=== PATIENT | female | born 1975 | race Caucasian/White ===

== ENCOUNTER → 2016-12-21 | Outpatient (CLI) | payer OTHER ==
[~2016-12-21] MED LIST: LEVO100T PO; MELO7.5T5 PO; MULT-506 PO
[2016-12-21 10:05] LABS: THYROID STIMULATING HORMONE 1.32 uIu/ml (0.300-4.500)
== END | disposition home or self-care (01) ==
LOC: C.LAB1850 07:24
PROVIDERS: ATTEND Internal Medicine Endocrinology, Diabetes & Metabolism
DX: E03.9 Hypothyroidism, unspecified (principal)

== ENCOUNTER → 2017-01-03 | Outpatient (CLI) | payer OTHER ==
[2017-01-03 13:33] VITALS: BP 103/67; PULSE 60; TEMP 37; O2SAT 100
--- NOTE | 2017-01-03 15:02 | Radiation Oncology Follow-Up ---
Radiation Oncology Follow-Up Date of Visit Jan 03, 2017. (Susan Hsieh PA-C) Reason For Visit 6 month follow-up (Susan Hsieh PA-C) Radiation Completion Date 05/23/16 (Susan Hsieh PA-C) Diagnosis (1) Ductal carcinoma in situ (DCIS) of breast Status: Resolved Onset Date: 01/20/2016 Permanent Comment: DIAGNOSIS: Left breast, ductal [id number], high grade , focal necrosis, ER/VA negative, Tis with Paget's Disease Status post biopsy 01/20/2016 revealing Paget's disease Status post left central partial mastectomy 01/29/2016 Status post reexcision 02/18/2016 Status post nipple reconstruction 03/18/2016 Status post completion of radiation therapy 05/23/2016 received 6120 cGy Status post biopsy of the right nipple 06/06/2016 benign Last Edited By: Susan Hsieh on Jun 22, 2016 16:09 (Susan Hsieh PA-C) History of Present Illness Ms. Lal is a 41-year-old female who initially noted some dry scaliness involving her left nipple. She initially attributed this to previously breast feeding. She did eventually talk to her about her call center coordinator who recommended that she undergo a biopsy. She was seen by Dr. Ricardo who recommended a bilateral mammogram and left breast ultrasound which was completed on 2015. The mammograms She was seen by Dr. Mujica who did perform a biopsy of the left nipple which came back consistent with Paget's disease. The cells were stained and were estrogen receptor negative and progesterone receptor negative and HER-2 receptor positive. The mammogram showed slight increased density around the left nipple but no defined suspicious mass or calcifications. Targeted real-time ultrasound of the left nipple only showed 2 cysts but no masses in the breast. She then underwent a resection of the areola complex on 01/29/2016 with a left partial mastectomy which revealed Paget 's disease with ductal carcinoma in situ. The ductal carcinoma in situ was characterized as high grade measuring up to 1 cm in the greatest dimension. The DCIS structure was papillary and cribriform with focal necrosis. There was Paget's disease noted to be extending to the inferior alveolar skin margin. Dr. Mujica took the patient back to the operating room on [place] 21 for reexcision to obtain negative margins. She did have BRCA mutation testing completed which was negative for both BRCA 1 and 2. The patient was then seen by Dr. Lisa Calixto for consideration of reconstruction of the nipple and they are planning to do a reconstruction very shortly. We are now seeing the patient in consultation to discuss the role of adjuvant radiation therapy. Overall, the patient doing relatively well. She has no complaints. She is healed up well from her surgery and is anticipating her next reconstructive surgery. Her energy, appetite and weight are all stable. She did mention to me that she has vacation in the beginning of April implants to go on the prescription. She denies CT simulation and received conventional therapy. She was treated from 04/05/2016 to 05/23/2016. She received 6120 cGy (Susan Hsieh PA-C) Interim History She has noted chest wall tenderness over the past few months. This occurs especially if her son lays against her chest area. It also occurred in the lower anterior chest when her gave her a hug. She has no redness in the area. She had an injury to her left shoulder. She is on Celebrex and has been on this for the past 2 weeks. The anti-inflammatory medication does not seem to help the chest wall. She also feels it doesn't help her shoulder. She has noted no masses to the breast. There has been no change of the axilla. She is up-to-date on mammography. She had a mammogram 08/17/2016. There was no evidence of breast malignancy. Interval left breast treatment changes. Diagnostic bilateral mammogram is recommended for December 2016. BI-RADS Category 2. (Susan Hsieh PA-C) Allergies Coded Allergies: NO KNOWN DRUG ALLERGIES (Verified Allergy, Unknown, ., 03/18/16) Home Medications Scheduled Levothyroxine Sodium (Synthroid), 1 TAB PO QAM Meloxicam (Mobic), 15 MG PO DAILY Multivitamin (Multivitamin), 1 TAB PO QAM Review of Systems Gastrointestinal: Symptoms: WNL Oral: Symptoms: No Problems Respiratory: Symptoms: WNL Urinary: Symptoms: WNL Skin: Symptoms: No Problems Breast: Right Upper Arm Measurement: 25.5 Right Mid Arm Measurement: 22.5 Right Wrist Measurement: 14.8 Left Upper Arm Measurement: 26.0 Left Mid Arm Measurement: 21.5 Left Wrist Measurement: 14.5 Arm Dominence: Right (Susan Hsieh PA-C) Physical Exam Vital Signs Date Time Temp Pulse Resp B/P Pulse Ox O2 Delivery O2 Flow Rate FiO2 01/03/17 13:33 37.0 60 16 103/67 100 General Appearance: no apparent distress Eyes: normal inspection, EOMI ENT: normal ENT inspection, hearing grossly normal Neck: no adenopathy, thyroid normal Respiratory/Chest: lungs clear, no respiratory distress, no accessory muscle use Breast: Breast examination reveals well-healed incisions of the left breast There are no masses and no axillary adenopathy. She does have tenderness anteriorly and laterally between the ribs. There is no erythema or edema. There are no lesions or dryness of the reconstructed nipple. Using the [place] score cosmesis she has a good outcome. The right breast showed no masses or tenderness and no axillary adenopathy. Cardiovascular: regular rate, rhythm, no gallop, no murmur Extremities: no pedal edema Neurologic/Psychiatric: no motor/sensory deficits, alert, normal mood/affect Skin: warm/dry (Susan Hsieh PA-C) Laboratory Studies Test 10/11/16 07:46 12/21/16 07:26 Thyroid Stimulating Hormone (TSH) 2.740 uIu/ml (0.300-4.500) 1.320 uIu/ml (0.300-4.500) Free Thyroxine 1.44 ng/dl (0.80-1.60) 1.15 ng/dl (0.80-1.60) (Susan Hsieh PA-C) Additional Studies Mammography as reviewed above. (Susan Hsieh PA-C) Assessment & Plan Plan: Continue with scheduled mammography. Continue regular follow-up with Dr. Mujica and her primary care physician. We discussed the discomfort between the ribs. We discussed that this is inflammation likely related to the radiation. It is similar to costochondritis. She is on anti-inflammatory. I recommended warm compresses to the chest wall. We discussed possibly changing to steroid. She currently does not wish to pursue treatment with a steroid at this time. This may also steadily improve over time. We asked her to return to our office in 1 year. She was also seen and examined by Dr. Forbes. 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 (Susan Hsieh PA-C) I agree with note created by Susan Hsieh PA-C. I reviewed the patient's chart and information with her. I have examined and evaluated the patient. I reviewed relevant clinical information and answered the patient's and/or family' s questions. (Veeral. Forbes MD) Total Time In Follow-Up I spent 20 minutes speaking to the patient performing examination. As 15 minutes reviewing information in completing this note. (Susan Hsieh PA-C) I spent 15 minutes examining and counseling the patient. (Veeral. Forbes MD) Copy To Bob Mujica M.D.; Nick Arguello, D.O.Int.Med.; Lisa Calixto MD Problem Qualifiers (1) Ductal carcinoma in situ (DCIS) of breast: Laterality: left Qualified Codes: D05.12 - Intraductal carcinoma in situ of left breast
== END | disposition home or self-care (01) ==
LOC: C.ONC 13:29
PROVIDERS: ATTEND Physician Assistant Medical
DX: Z08 Encounter for follow-up examination after completed treatment for malignant neoplasm (principal); Z92.3 Personal history of irradiation; Z86.000 Personal history of in-situ neoplasm of breast

== ENCOUNTER → 2017-01-11 | Outpatient (CLI) | payer OTHER | END | disposition home or self-care (01) | LOC: C.PAPS 11:09 | PROVIDERS: ATTEND Physician Assistant | DX: Z01.419 Encounter for gynecological examination (general) (routine) without abnormal findings (principal); R87.610 Atypical squamous cells of undetermined significance on cytologic smear of cervix (ASC-US) ==

== ENCOUNTER → 2017-03-04 | Outpatient (CLI) | payer OTHER ==
[2017-03-04 09:34] LABS: HEMATOCRIT 42.5 % (37-47); MEAN CELL VOLUME 93.4 fL (80-100); MEAN CORPUSCULAR HEMOGLOBIN 31.4 pg (25-34); MEAN CORPUSCULAR HGB CONC 33.6 g/dl (32-36); MEAN PLATELET VOLUME 10.5 fL (7.4-10.4); PLATELET COUNT 271 K/uL (130-400); RED BLOOD COUNT 4.55 M/uL (4.2-5.4); WHITE BLOOD COUNT 5.25 K/uL (4.8-10.8)
[2017-03-04 10:04] LABS: ALB/GLOB RATIO 1.1 (0.9-2); ALKALINE PHOSPHATASE 35 U/L (45-117); ALT/SGPT 31 U/L (12-78); AST/SGOT 14 U/L (15-37); BLOOD UREA NITROGEN 17 mg/dl (7-18); BUN/CREATININE RATIO 23.6 (10-20); CALCIUM 8.6 mg/dl (8.5-10.1); CARBON DIOXIDE 30 mmol/L (21-32); CHLORIDE 106 mmol/L (98-107); CREATININE 0.71 mg/dl (0.60-1.20); GLUCOSE 78 mg/dl (70-99); POTASSIUM 4.2 mmol/L (3.5-5.1); SODIUM 141 mmol/L (136-145)
[2017-03-10 09:30] LABS: ILGF1 Z SCORE FEMALE 0.9 SD (-2.0 - +2.0); INSULIN LIKE GROWTH FACTOR-I 211 ng/mL (53-331); TESTOSTERONE,TOTAL 14 ng/dL (2-45)
== END | disposition home or self-care (01) ==
LOC: C.LAB 07:58
PROVIDERS: ATTEND Internal Medicine Endocrinology, Diabetes & Metabolism
DX: M79.1 Myalgia (principal); E03.9 Hypothyroidism, unspecified; R42 Dizziness and giddiness; R53.83 Other fatigue; R68.82 Decreased libido; N92.6 Irregular menstruation, unspecified

== ENCOUNTER → 2017-03-06 | Outpatient (CLI) | payer OTHER | END | disposition home or self-care (01) | LOC: C.PATHSPEC 14:00 | PROVIDERS: ATTEND Obstetrics & Gynecology | DX: N93.9 Abnormal uterine and vaginal bleeding, unspecified (principal) ==

== ENCOUNTER → 2017-03-17 | Day surgery (SDC) | payer OTHER ==
[~2017-03-17] VITALS: Ht 172.7 cm; Wt 63.0 kg
[~2017-03-17] MED LIST changes: +COSYNTROPIN INJ 1 MCG in SYRINGE 0 ML IV SCH
[2017-03-17 08:17] VITALS: BP 109/61; PULSE 60; TEMP 37; O2SAT 100; Ht 172.7 cm; Wt 63.0 kg
[2017-03-17 09:19] VITALS: BP 96/61; PULSE 67
== END | disposition home or self-care (01) ==
LOC: C.MTU 07:52
PROVIDERS: ATTEND Internal Medicine Endocrinology, Diabetes & Metabolism
DX: R53.83 Other fatigue (principal)

== ENCOUNTER → 2017-04-28 | Outpatient (CLI) | payer OTHER ==
[~2017-04-28] MED LIST changes: -COSYNTROPIN INJ 1 MCG in SYRINGE 0 ML IV SCH; -MULT-506 PO
[2017-04-28 09:59] LABS: THYROID STIMULATING HORMONE 0.87 uIu/ml (0.300-4.500)
== END | disposition home or self-care (01) ==
LOC: C.LAB1850 07:48
PROVIDERS: ATTEND Internal Medicine Endocrinology, Diabetes & Metabolism
DX: E03.9 Hypothyroidism, unspecified (principal)

== ENCOUNTER → 2017-06-20 | Outpatient (CLI) | payer OTHER ==
[2017-06-20 10:59] LABS: THYROID STIMULATING HORMONE 1.77 uIu/ml (0.300-4.500)
== END | disposition home or self-care (01) ==
LOC: C.LAB1850 07:15
PROVIDERS: ATTEND Internal Medicine Endocrinology, Diabetes & Metabolism
DX: E03.9 Hypothyroidism, unspecified (principal); M79.1 Myalgia; R53.83 Other fatigue

== ENCOUNTER → 2017-07-11 | Outpatient (CLI) | payer OTHER | END | disposition home or self-care (01) | LOC: C.PATHSPEC 17:30 | PROVIDERS: ATTEND Dermatology | DX: D23.61 Other benign neoplasm of skin of right upper limb, including shoulder (principal) ==

== ENCOUNTER → 2018-01-04 | Outpatient (CLI) | payer OTHER ==
[~2018-01-04] MED LIST changes: +ASCA500 PO; +CHOL2000 PO; +LEVO112T4 PO; +MISC1TAB34; +MULT-506 PO; +TURM500C2 PO
[2018-01-04 12:43] VITALS: BP 98/63; PULSE 60; TEMP 37; O2SAT 99
--- NOTE | 2018-01-04 13:50 | Radiation Oncology Follow-Up ---
Radiation Oncology Follow-Up Date of Visit Jan 04, 2018. Reason For Visit Annual follow-up Radiation Completion Date 05/23/16 Diagnosis (1) Ductal carcinoma in situ (DCIS) of breast Status: Resolved Onset Date: 01/20/2016 Stage: 0 Permanent Comment: DIAGNOSIS: Left breast, ductal [id number], high grade , focal necrosis, ER/HI negative, Tis with Paget's Disease Status post biopsy 01/20/2016 revealing Paget's disease Status post left central partial mastectomy 01/29/2016 Status post reexcision 02/18/2016 Status post nipple reconstruction 03/18/2016 Status post completion of radiation therapy 05/23/2016 received 6120 cGy Status post biopsy of the right nipple 06/06/2016 benign Last Edited By: Susan Hsieh on Jun 22, 2016 16:09 History of Present Illness Ms. Lal is a 41-year-old female who initially noted some dry scaliness involving her left nipple. She initially attributed this to previously breast feeding. She did eventually talk to her about her health plan specialist who recommended that she undergo a biopsy. She was seen by Dr. Ricardo who recommended a bilateral mammogram and left breast ultrasound which was completed on 2015. The mammograms She was seen by Dr. Mujica who did perform a biopsy of the left nipple which came back consistent with Paget's disease. The cells were stained and were estrogen receptor negative and progesterone receptor negative and HER-2 receptor positive. The mammogram showed slight increased density around the left nipple but no defined suspicious mass or calcifications. Targeted real-time ultrasound of the left nipple only showed 2 cysts but no masses in the breast. She then underwent a resection of the areola complex on 01/29/2016 with a left partial mastectomy which revealed Paget 's disease with ductal carcinoma in situ. The ductal carcinoma in situ was characterized as high grade measuring up to 1 cm in the greatest dimension. The DCIS structure was papillary and cribriform with focal necrosis. There was Paget's disease noted to be extending to the inferior alveolar skin margin. Dr. Mujica took the patient back to the operating room on February 17 for reexcision to obtain negative margins. She did have BRCA mutation testing completed which was negative for both BRCA 1 and 2. The patient was then seen by Dr. Lisa Calixto for consideration of reconstruction of the nipple and they are planning to do a reconstruction very shortly. We are now seeing the patient in consultation to discuss the role of adjuvant radiation therapy. Overall, the patient doing relatively well. She has no complaints. She is healed up well from her surgery and is anticipating her next reconstructive surgery. Her energy, appetite and weight are all stable. She did mention to me that she has vacation in the beginning of April implants to go on the prescription. She denies CT simulation and received conventional therapy. She was treated from 04/05/2016 to 05/23/2016. She received 6120 cGy Interim History She has noticed no changes of the left breast over the past year. She has discomfort if the areas accidentally bumped. There is no continuous pain. She does not give the discomfort a pain level. She has noted no masses no change of the axilla. She is up-to-date on mammography. She was seen by the breast surgeon in August. She had a mammogram August 15, 2017 that showed no evidence of breast malignancy. Dense breast tissue and benign breast cysts. This was a right breast mammogram. Recommendation was for a recheck mammogram in 6 months. This will be a bilateral diagnostic mammogram. It was given a BI- RADS Category 2. Allergies Coded Allergies: NO KNOWN DRUG ALLERGIES (Verified Allergy, Unknown, ., 03/17/17) Home Medications Scheduled Ascorbic Acid (Vitamin C), 600 MG PO DAILY Cholecalciferol (Vitamin D3), 5,000 UNITS PO DAILY Levothyroxine Sodium (Levothyroxine Sodium), 1 TAB PO DAILY Multivitamin (Multivitamin), 1 TAB PO DAILY Turmeric (Curcuma Longa) (Curcumin 95), 1 TAB PO DAILY Miscellaneous Medications Misc Natural Products (Curcumax Pro) Review of Systems Gastrointestinal: Symptoms: WNL Oral: Symptoms: No Problems Respiratory: Symptoms: WNL Urinary: Symptoms: WNL Skin: Symptoms: No Problems Breast: Right Upper Arm Measurement: 26.5 Right Mid Arm Measurement: 22.5 Right Wrist Measurement: 14.5 Left Upper Arm Measurement: 26.8 Left Mid Arm Measurement: 21.5 Left Wrist Measurement: 14.5 Arm Dominence: Right Physical Exam Vital Signs Date Time Temp Pulse Resp B/P (MAP) Pulse Ox O2 Delivery O2 Flow Rate FiO2 01/04/18 12:43 37.0 60 12 98/63 99 Fatigue: None General Appearance: no apparent distress Eyes: normal inspection, EOMI ENT: normal ENT inspection, hearing grossly normal Neck: no adenopathy, thyroid normal Respiratory/Chest: lungs clear, no respiratory distress, no accessory muscle use Breast: Breast examination reveals well-healed incisions of the left breast. There are no masses or tenderness and no axillary adenopathy. No areas of tenderness were noted. Status post nipple reconstruction. Using the [place] score of cosmesis she has a good outcome. The right breast showed no masses or tenderness and no axillary adenopathy. She has no skin retractions or nipple changes. Cardiovascular: regular rate, rhythm, no gallop, no murmur Extremities: no pedal edema Neurologic/Psychiatric: no motor/sensory deficits, alert, normal mood/affect Skin: warm/dry Pain Management Patient Reports Pain: No Initial Pain Intensity: 0.0 Pain Management Plan She has discomfort if the breast is accidentally bumped. She does not give this a pain level. She did not require any pain management. Laboratory Laboratory Results: not applicable Pathology Pathology Results: not applicable Imaging Imaging Studies: were reviewed Imaging Comments Mammography was reviewed in the interim history. Assessment & Plan Plan: Continue mammography. She will need scheduled for the end of January. The mammogram was scheduled in [place]. She will likely be leaving the area before the end of the year. Her will be accepting a new position in [place]. She has lived there before and is looking forward to going back to [place]. She will need to establish with a physician there. We told her she can call our office if she needs any help with forwarding documentation. A follow-up appointment was given for 6 months if she is still in this area. Assessment & Plan (Attending) I agree with note created by Susan Hsieh PA-C. I reviewed the patient's chart and information with her. I have examined and evaluated the patient. I reviewed relevant clinical information and answered the patient's and/or family' s questions. 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 I spent 15 minutes reviewing information and completing this note. AK Total Time (Attending) In Follow-Up I spent 15 minutes examining and counseling the patient. GROUP EXERCISE CLASS INSTRUCTOR Copy To Anna Barakat C.[email or web address] Problem Qualifiers (1) Ductal carcinoma in situ (DCIS) of breast: Laterality: left Qualified Codes: D05.12 - Intraductal carcinoma in situ of left breast
== END | disposition home or self-care (01) ==
LOC: C.ONC 12:36
PROVIDERS: ATTEND Physician Assistant Medical
DX: Z08 Encounter for follow-up examination after completed treatment for malignant neoplasm (principal); Z92.3 Personal history of irradiation; Z86.000 Personal history of in-situ neoplasm of breast

== ENCOUNTER → 2018-01-04 | Outpatient (CLI) | payer OTHER | END | disposition home or self-care (01) | LOC: C.LAB1850 14:02 | PROVIDERS: ATTEND Internal Medicine Endocrinology, Diabetes & Metabolism | DX: E03.9 Hypothyroidism, unspecified (principal) ==

== ENCOUNTER → 2018-01-09 | Outpatient (CLI) | payer OTHER ==
[~2018-01-09] MED LIST changes: -LEVO100T PO; -MELO7.5T5 PO
== END | disposition home or self-care (01) ==
LOC: C.LAB1850 07:32
PROVIDERS: ATTEND Internal Medicine Endocrinology, Diabetes & Metabolism
DX: R53.83 Other fatigue (principal); E03.9 Hypothyroidism, unspecified; E06.3 Autoimmune thyroiditis

== ENCOUNTER → 2018-01-25 | Outpatient (CLI) | payer OTHER | END | disposition home or self-care (01) | LOC: C.PAPS 09:20 | PROVIDERS: ATTEND Obstetrics & Gynecology | DX: Z01.419 Encounter for gynecological examination (general) (routine) without abnormal findings (principal) ==

== ENCOUNTER → 2018-03-05 | Outpatient (CLI) | payer OTHER ==
[~2018-03-05] MED LIST changes: +GADAVIST IV PRN
--- NOTE | 2018-03-06 15:14 | MAMMOGRAPHY REPORT ---
BREAST MRI OF BOTH BREASTS : 03/05/2018 CLINICAL HISTORY: 42-year-old woman with a personal history of Paget's disease of the left nipple samantha gnosed in 2016, status post breast conservation treatment and reconstruction. She presents for [facility] screening breast MRI. COMPARISON: Bilateral diagnostic mammography dated 02/22/2018, breast ultrasounds dated 08/15/2017, and unilateral mammography dated 08/15/2017, 08/17/2016. TECHNIQUE: Using a 1.5 Koki magnet and dedicated breast coil, multisequence axial images were obtain ed through the breasts. After uneventful IV administration of 6.3 mL of Gadavist, dynamic multiphase contrast-enhanced axial images, and sagittal postcontrast were obtained. Temporal subtraction axial images and 3-D MIP images are provided. Everything was then reviewed on a 3-D workstation, [employer]. FINDINGS: Right breast: There are scattered T2 hyperintense nonenhancing cysts in the right breast, the largest is in the 10:00 middle one third of the breast, measuring 6 mm. There is moderate to marked backgro und parenchymal enhancement of the right breast, which lowers the sensitivity for detecting non-mass enhancement. Additionally, the diffuse background enhancement of the right breast is globally asymme tric when comparing to the left breast. Superimposed upon the background enhancement are too conspic uous enhancing foci in the 6:00 middle to anterior right breast measuring 4 and 5 mm, respectively (a xial page 80/116, 78/116). These foci of enhancement demonstrate mixed persistent and plateau kineti cs and no significant T2 hyperintensity. Another conspicuous irregular focus of enhancement is seen in the posterior retroareolar versus 9:00 right breast (axial page 68/116), which demonstrates washou t kinetics. No significant T2 hyperintensity. Targeted second look ultrasound with possible ultraso und-guided core biopsy is recommended in both the retroareolar/9:00 posterior and 6:00 axes of the ri ght breast. There is no evidence of a dominant suspicious enhancing mass, other areas of suspicious kinetics or right axillary lymphadenopathy. No focal skin thickening or nipple retraction. Left breast: There is minimal background parenchymal enhancement of the left breast. This is asymmet kip comparing to the contralateral right breast and may be due to recent radiation therapy. There is evidence of prior left breast surgery involving the nipple/areolar complex from previous breast cons ervation therapy and reconstruction. There is minimal focal non-mass enhancement measuring approxima tely 10 mm in the far posterior retroareolar versus 3:00 posterior left breast with associated washou t kinetics. Targeted second look ultrasound is recommended. There is no focal area of skin thickeni ng. No suspicious left axillary lymphadenopathy. IMPRESSION: ACR BI-RADS CATEGORY 0: INCOMPLETE EVALUATION: NEED ADDITIONAL IMAGING EVALUATION 1. Global asymmetry of the background enhancement of the breasts, with the right significantly incre ased comparing to the left. This is likely related to recent treatment of the left breast including surgery involving the nipple/areola complex and radiation therapy. It also lowers the sensitivity fo r detecting malignancy in the right breast. 2. Within this limitation, there are 3 conspicuous foci of enhancement in the right breast, in the 6 :00 and approximate 9:00 retroareolar axes, for which targeted second look ultrasound and possible ul trasound-guided core biopsy is recommended. 3. 10 mm focal non-mass enhancement in the posterior 3:00 versus retroareolar left breast for which targeted second look ultrasound is recommended. 4. Pending results of second look ultrasound in each breast, would also consider a short interval fo llow-up breast MRI to ensure stability given the global asymmetric background enhancement. The patient will be called to schedule an appointment. Cassie Pendleton M.D. 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
== END | disposition home or self-care (01) ==
LOC: C.MRI 13:34
PROVIDERS: ATTEND Physician Assistant Medical
DX: D05.12 Intraductal carcinoma in situ of left breast (principal)

== ENCOUNTER → 2018-03-13 | Outpatient (CLI) | payer OTHER ==
[~2018-03-13] MED LIST changes: -GADAVIST IV PRN
--- NOTE | 2018-03-13 11:43 | DIAGNOSTIC IMAGING REPORT ---
ULTRASOUND OF THE THYROID GLAND CLINICAL HISTORY: Hypothyroidism. COMPARISON STUDY: Thyroid ultrasound dated 08/07/2014. TECHNIQUE: Real-time, grayscale, and color flow sonography of the thyroid gland is performed utilizing a high-frequency linear transducer. Images are reviewed in the transverse and longitudinal planes. FINDINGS: Right lobe: The right lobe of the thyroid gland is normal in size and slightly heterogeneous in echotexture, measuring 5.3 x 1.4 x 1.6 cm. A honeycomb nodule in the posterior midpole measures 0.9 x 0.5 x 0.6 cm (previously measured up to 0.6 cm). Left lobe: The left lobe of the thyroid gland is normal in size and slightly heterogeneous in echotexture, measuring 5.1 x 1.4 x 1.4 cm. A hypoechoic nodule in the anterior upper pole measures 0.8 x 0.3 x 0.8 cm. A second 4 mm hypoechoic nodule is incidentally noted in the posterior upper pole. Isthmus: The thyroid isthmus is normal in appearance and measures 0.2 cm in AP diameter. IMPRESSION: 1. The thyroid gland is normal in size and slightly heterogeneous in echotexture. 2. Low suspicion subcentimeter nodules are incidentally noted. These do not meet criteria for fine-needle aspiration. Electronically signed by: Thiago Langston M.D. 03/13/2018 11:42 AM Dictated Date/Time: 03/13/2018 11:39 AM
== END | disposition home or self-care (01) ==
LOC: C.ULTR 10:47
PROVIDERS: ATTEND Internal Medicine Endocrinology, Diabetes & Metabolism
DX: E03.9 Hypothyroidism, unspecified (principal)